=== PATIENT | female | born 1940 | race Caucasian/White ===

== ENCOUNTER → 2016-06-08 | Outpatient (CLI) | payer OTHER, MEDICARE | LOC: FIMAGING 09:56 | DX: Z12.31 Encounter for screening mammogram for malignant neoplasm of breast (principal) | CPT/HCPCS: G0202 ==

== ENCOUNTER 2017-05-21 10:11 | Emergency (ER) | payer OTHER, MEDICARE ==
--- NOTE | 2017-05-21 10:31 | EDPHY ---
H & P Stated Complaint: high BPs and blood in uring starting Sunday Time Seen by Provider: 05/21/17 10:31 - Personal History Current Tetanus/Diphtheria Vaccine: Yes Current Tetanus Diphtheria and Acellular Pertussis (TDAP): Yes Tetanus Vaccine Date: < 10 years - Medical/Surgical History Hx Asthma: No Hx Chronic Respiratory Disease: No Hx Diabetes: No Hx Cardiac Disease: No Hx Renal Disease: No Hx Cirrhosis: No Hx Alcoholism: No Hx HIV/AIDS: No Hx Splenectomy or Spleen Trauma: No Other PMH: prolapsed bladder, hysterectomy,. HTN, hyperlipidemia - Social History Smoking Status: Never smoked Constitutional: Initial Vital Signs Temperature (C) 36.4 C 05/21/17 10:17 Heart Rate 78 05/21/17 10:17 Respiratory Rate 18 05/21/17 10:17 Blood Pressure 189/87 H 05/21/17 10:17 O2 Sat (%) 96 05/21/17 10:17 O2 Delivery Mode Room Air Allergies/Adverse Reactions: bacitracin [From Neosporin ([id number])] Allergy (Verified 05/21/17 10:15) codeine Allergy (Verified 05/21/17 10:15) erythromycin base [From Erythrocin] Allergy (Verified 05/21/17 10:15) ketoconazole [From Nizoral] Allergy (Verified 05/21/17 10:15) meperidine [From Demerol] Allergy (Verified 05/21/17 10:15) neomycin [From Neosporin ([id number])] Allergy (Verified 05/21/17 10:15) nitrofurantoin [From Macrobid] Allergy (Verified 05/21/17 10:15) polymyxin B [From Neosporin ([id number])] Allergy (Verified 05/21/17 10:15) Home Medications: Medication Instructions Recorded Amitriptyline HCl 05/21/17 Atorvastatin Calcium 05/21/17 Cephalexin [Keflex (RX)] 500 mg PO TID #20 cap 05/21/17 ESTRADIOL ACETATE 05/21/17 ETODOLAC 05/21/17 Flonase Nasal [place] 05/21/17 Lisinopril/Hydrochlorothiazide 1 each PO DAILY #30 tablet 05/21/17 [Lisinopril-Hctz 10-12.5 mg Tab] PREMARIN 05/21/17 Valtrex 05/21/17 Medical Decision Making ED Course/Re-evaluation: CHIEF COMPLAINT: Hematuria, hypertension HISTORY OF PRESENT ILLNESS: The patient is a 77 y/o female with a history of hypertension and prolapsed bladder arriving with her complaining of upward-trending blood pressure for a couple weeks and hematuria onset this morning. She was evaluated by urgent care last week for malaise and diagnosed with a viral syndrome and advised to follow up with her PCP regarding her increasing BP. She has been on medication for this in the past, but has not required it recently. She is scheduled to see Dr. Quintanilla next week to discuss this. Over the weekend she felt mildly nauseated with some lower back pain. She denies flank pain, vomiting, diarrhea, abdominal pain. REVIEW OF SYSTEMS: A 10 point review of systems was performed and is negative with the exception of the elements mentioned in the history of present illness. PHYSICAL EXAM: HR, BP, O2 Sat, RR. Temp noted General Appearance: Alert, well hydrated, appropriate, and non-toxic appearing. Head: Atraumatic without scalp tenderness or obvious injury Eyes: Pupils equal, round, reactive to light and accommodation, EOMI, no trauma , no injection. Nose: Atraumatic, no rhinorrhea, clear. Throat: There is no erythema or exudates, no lesions, normal tonsils, mucus membranes moist. Neck: Supple, nontender, no lymphadenopathy. Respiratory: No retractions, no distress, no wheezes, and no accessory muscle use. Lungs are clear to auscultation bilaterally. Cardiovascular: Regular rate and rhythm, no murmurs, rubs, or gallops. Good capillary refill all extremities. Gastrointestinal: Abdomen is soft, nontender, non-distended, no masses, no rebound, no guarding, no peritoneal signs. Musculoskeletal: Normal active ROM of all extremities, atraumatic. No CVA tenderness Neurological: Alert, appropriate, and interactive. The patient has non-focal cranial nerves, motor, sensory, and cerebellar exam. Skin: No rashes, good turgor, no nodules on palpation. Past medical history: prolapsed bladder, hypertension, hyperlipidemia, UTIs, back pain Past surgical history: Hysterectomy Family history: Noncontributory Social history: at bedside. Lives in [place]. Retired. PCP: Dr. Dughi. DIFFERENTIAL DIAGNOSIS: The differential diagnosis for the patient's symptoms included but was not limited to urinary tract infection, pyelonephritis, essential hypertension, viral syndrome, meningitis, and sepsis. MEDICAL DECISION MAKING: This is a 77 y/o female with a history of UTIs and hypertension that is not currently medication presenting with a one-day history of hematuria and couple weeks of increasing blood pressure. She is scheduled to see her PCP regarding her BP next week and has no acute signs or symptoms of hypertensive emergency or urgency. No flank or abdominal tenderness on exam and she is afebrile, reducing suspicion for pyelonephritis. Plan for ISTAT and UA. ISTAT shows normal kidney function and UA indicates hemorrhagic cystitis. She will receive a dose of Lisinopril/HCTZ and 200mg PO Pyridium here and receive scripts for both of these for home. She will be discharged with standard UTI care and follow up instructions. Return precautions discussed. She is comfortable with this plan. - Data Points Laboratory Results: 05/21/17 05/21/17 10:43 10:30 POC Hgb 15.3 gm/dL gm/dL (12.6-16.3) POC Hct 45 % % (38-47) POC Sodium 140 mEq/L mEq/L (135-145) POC Potassium 3.8 mEq/L mEq/L (3.3-5.0) POC Chloride 105 mEq/L mEq/L (97-110) POC BUN 22 mg/dL mg/dL (7-23) POC Creatinine 0.9 mg/dL mg/dL (0.6-1.0) POC Glucose 110 mg/dL H mg/dL (70-100) Urine Color YELLOW Urine Appearance CLEAR Urine pH 8.0 H (5.0-7.5) Ur Specific [place] 1.003 (1.002-1.030) Urine Protein NEGATIVE (NEGATIVE) Urine Ketones NEGATIVE (NEGATIVE) Urine Blood 3+ H (NEGATIVE) Urine Nitrate NEGATIVE (NEGATIVE) Urine Bilirubin NEGATIVE (NEGATIVE) Urine Urobilinogen NEGATIVE EU EU (0.2-1.0) Ur Leukocyte Esterase NEGATIVE (NEGATIVE) Urine RBC 50-182 /hpf H /hpf (0-3) Urine WBC 3-5 /hpf H /hpf (0-3) Ur Epithelial Cells TRACE /lpf /lpf (NONE-1+) Urine Bacteria 3+ /hpf H /hpf (NONE SEEN) Urine Glucose NEGATIVE (NEGATIVE) Medications Given: Discontinued Medications Phenazopyridine HCl (Pyridium) 200 mg PO EDNOW ONE Stop: 05/21/17 10:46 Last Admin: 05/21/17 10:47 Dose: 200 mg Point of Care Test Results: 05/21/17 10:43 POC Sodium 140 POC Potassium 3.8 POC Chloride 105 POC BUN 22 POC Creatinine 0.9 POC Glucose 110 H Departure - Departure Clinical Impression: UTI (urinary tract infection) Qualifiers: Urinary tract infection type: acute cystitis Hematuria presence: with hematuria Qualified Code(s): N30.01 - Acute cystitis with hematuria Hypertension Qualifiers: Hypertension type: essential hypertension Qualified Code(s): I10 - Essential ( primary) hypertension Condition: Good Instructions: Cephalexin (By mouth), Urinary Tract Infection in Women (ED), Hypertension (ED) Additional Instructions: 1. Take Keflex as prescribed for UTI. Be sure to complete the entire prescription even if you feel improved. 2. Use Pyridium, available [id number], as directed on the packaging for urinary pain. 3. Take lisinopril/HCTZ as prescribed for hypertension. Continue tracking your blood pressure until your follow up appointment with Dr. Quintanilla next week. 4. Return to the ED for worsening of condition. Referrals: Gaye Quintanilla MD [Primary Care Provider] - As per Instructions Prescriptions: Cephalexin [Keflex (RX)] 500 mg PO TID #20 cap Lisinopril/Hydrochlorothiazide [Lisinopril-Hctz 10-12.5 mg Tab] 1 each PO DAILY #30 tablet Report Scribed for: Faraz Flores Report Scribed by: Anita Watts Date of Report: 05/21/17 Time of Report: 10:46
[2017-05-21] MEDS ORDERED: CEPHALEXIN 500 MG CAP PO ONE (10:45)
[2017-05-21] MEDS ORDERED: PHENAZOPYRIDINE HCL 200 MG TAB PO ONE (10:45)
[2017-05-21 10:59] VITALS: BP 165/101; PULSE 65; RESP 16; TEMP 97.7; O2SAT 98
== END 2017-05-21 11:03 | disposition home or self-care (01) ==
DX: N30.01 Acute cystitis with hematuria (principal); B96.89 Other specified bacterial agents as the cause of diseases classified elsewhere; I10 Essential (primary) hypertension
CPT/HCPCS: 82947-QW

== ENCOUNTER → 2017-06-11 | Outpatient (CLI) | payer OTHER, MEDICARE | LOC: FIMAGING 09:20 | PROVIDERS: ATTEND Internal Medicine | DX: Z12.31 Encounter for screening mammogram for malignant neoplasm of breast (principal) ==

== ENCOUNTER → 2017-06-21 | Outpatient (CLI) | payer OTHER, MEDICARE | LOC: BMCIMAGING 11:08 | PROVIDERS: ATTEND Internal Medicine Rheumatology | DX: M17.0 Bilateral primary osteoarthritis of knee (principal) ==

== ENCOUNTER → 2017-07-20 | Outpatient (CLI) | payer OTHER, MEDICARE ==
[~2017-07-20] MED LIST: BUPIVACAINE 0.25% 30 ML SDV ONE; DEPO METHYLPREDNISOLONE 40 MG/ML SDV ONE; LIDOCAINE 1% 300 MG/30 ML SDV ONE
== END ==
LOC: FIMAGING 10:50
PROVIDERS: ATTEND Orthopaedic Surgery
PROC: 0M9P3ZZ Drainage of Left Knee Bursa and Ligament, Percutaneous Approach (ICD-10-PCS; principal; 2017-07-20)
DX: M71.22 Synovial cyst of popliteal space [Baker], left knee (principal)
CPT/HCPCS: 20610; 76942; J1030

== ENCOUNTER → 2018-07-01 | Outpatient (CLI) | payer OTHER, MEDICARE | LOC: FIMAGING 11:54 | PROVIDERS: ATTEND Internal Medicine | DX: Z12.31 Encounter for screening mammogram for malignant neoplasm of breast (principal) ==